=== PATIENT | female | born 1995 | race Hispanic/Latino ===

== ENCOUNTER 2019-10-16 17:52 | Emergency (ER) | payer SELFPAY ==
[2019-10-16 18:34] LABS: Bilirubin Negative (Negative); Blood, Urine Negative (Negative); Clarity Clear (Clear); Glucose, Urine (Dipstick) Normal (Negative); Leukocyte Negative Leu/uL (Negative); Nitrite Negative (Negative); Protein, Urine (Dipstick) Negative (Neg-Trace); Urobilinogen Normal mg/dL (Less than 2)
[2019-10-16 18:54] LABS: #Eosinphils 0.1 thou/uL (0.0-0.7); #Lymphocytes 2.2 thou/uL (1.20-3.40); #Monocytes 0.6 thou/uL (0.11-0.59); #Neutrophils 5.7 thou/uL (1.40-6.50); %Basophils 0.3 % (0.0-1.0); %Eosinophils 1.7 % (0.0-10.0); %Lymphocytes 25.2 % (21.0-51.0); %Monocytes 6.6 % (0.0-10.0); %Neutrophils 66.2 % (42.0-75.0); Hemoglobin 11.1 g/dL (12.0-16.0); Mean Corpuscular HGB CONC 33.2 g/dL (32.0-36.0); Mean Corpuscular Hemoglobin 25.2 pg (27.0-31.0); Mean Platelet Volume 8.5 fL (7.4-10.4); Platelet Count 280 thou/uL (130-400); RBC Distribution Width 16.7 % (11.5-14.5); Red Blood Cell (RBC) Count 4.43 mill/uL (4.20-5.40); White Blood Cell (WBC) Count 8.7 thou/uL (4.8-10.8)
[2019-10-16 19:13] LABS: ALT (SGPT) 10 U/L (8-55); AST (SGOT) 8 U/L (5-34); Albumin 3.9 g/dL (3.5-5.0); Alkaline Phosphatase 52 U/L (40-110); Anion Gap 13 mmol/L (10-20); BUN (Urea Nitrogen) 9 mg/dL (7.0-18.7); Bilirubin, Total 0.4 mg/dL (0.2-1.2); Calc. Creatinine Clearance 0 mL/min (70-130); Calcium 9.1 mg/dL (7.8-10.44); Carbon Dioxide 22 mmol/L (22-29); Chloride 104 mmol/L (98-107); Estimated GFR-MDRD 85; Globulin 3.2 g/dL (2.4-3.5); Glucose 139 mg/dL (70-105); Potassium 3.6 mmol/L (3.5-5.1); Protein, Total 7.1 g/dL (6.0-8.3); Sodium 135 mmol/L (136-145)
--- NOTE | 2019-10-16 21:05 | ULT ---
PELVIC ULTRASOUND: Transabdominal ultrasound of the pelvis performed. Indications: Right lower quadrant and pelvic pain. FINDINGS: There is a viable intrauterine identified. pole is identified. Antimony rump length shannon cates an 11 week 2 day gestational age. Gestational sac appears normal. Gestational sac measurements indicate a 9 week 2 day gestational age. Overall gestational age by ultrasound is 10 weeks 6 days. heart rate recorded at 168 beats/minute. Posterior placenta that is low lying. Area of decreased echogenicity in the fundus adjacent to the placenta is consistent with a small area of subchorionic hemorrhage. Suggest follow up. Both ovaries are identified. Spectral analysis and doppler indicates blood flow to both ovaries. A sm all left ovarian cyst measuring up to 2.0 cm. No free fluid. IMPRESSION: 1. Viable intrauterine with gestational age by ultrasound 10 weeks 6 days. 2. Evidence of a small subchorionic hemorrhage. Suggest follow up. POS: TIM
== END 2019-10-16 22:01 | disposition home or self-care (01) ==
LOC: ERS 17:52
DX: O20.8 Other hemorrhage in early pregnancy (principal); O99.331 Smoking (tobacco) complicating pregnancy, first trimester; F17.210 Nicotine dependence, cigarettes, uncomplicated; Z3A.10 10 weeks gestation of pregnancy
CPT/HCPCS: 36415; 76856; 80053; 81003; 84702; 85025; 86900; 86901; 93976

== ENCOUNTER 2020-02-15 03:57 | Day surgery (SDC) | payer MEDICAID, SELFPAY ==
[2020-02-15 04:39] VITALS: BMI 44.4
[2020-02-15] MEDS ORDERED: hydrALAZINE 20 MG/ML VIAL SLOW IVP PRN (05:00)
[2020-02-15 05:55] LABS: #Eosinphils 0.2 thou/uL (0.0-0.7); #Lymphocytes 2.9 thou/uL (1.20-3.40); #Monocytes 0.8 thou/uL (0.11-0.59); #Neutrophils 10.1 thou/uL (1.40-6.50); %Basophils 0.1 % (0.0-1.0); %Eosinophils 1.3 % (0.0-10.0); %Lymphocytes 20.7 % (21.0-51.0); %Monocytes 5.7 % (0.0-10.0); %Neutrophils 72.2 % (42.0-75.0); Hemoglobin 9.6 g/dL (12.0-16.0); Mean Corpuscular HGB CONC 33.9 g/dL (32.0-36.0); Mean Corpuscular Hemoglobin 25.8 pg (27.0-31.0); Mean Platelet Volume 8.4 fL (7.4-10.4); Platelet Count 242 thou/uL (130-400); RBC Distribution Width 15.4 % (11.5-14.5); Red Blood Cell (RBC) Count 3.72 mill/uL (4.20-5.40)
[2020-02-15 06:12] LABS: ALT (SGPT) 8 U/L (8-55); AST (SGOT) 9 U/L (5-34); Albumin 3.5 g/dL (3.5-5.0); Alkaline Phosphatase 78 U/L (40-110); Anion Gap 12 mmol/L (10-20); BUN (Urea Nitrogen) 12 mg/dL (7.0-18.7); Bilirubin, Total 0.6 mg/dL (0.2-1.2); Calc. Creatinine Clearance 230 mL/min (70-130); Calcium 8.9 mg/dL (7.8-10.44); Carbon Dioxide 21 mmol/L (22-29); Chloride 106 mmol/L (98-107); Estimated GFR-MDRD Greater than 90; Globulin 3.1 g/dL (2.4-3.5); Glucose 115 mg/dL (70-105); Potassium 3.4 mmol/L (3.5-5.1); Protein, Total 6.6 g/dL (6.0-8.3); Sodium 136 mmol/L (136-145)
--- NOTE | 2020-02-15 07:37 | PDOC.LDHP ---
Labor and Delivery H&P Chief complaint: abdominal pain HPI: 24 y/o at 28w6d, patient of Dr. Oconnor, presents with intermittent abdominal pain since James when she woke up on her abdomen. She reports having upper abdominal pain lasting a minute and occurring several times per hour. Denies VB, LOF, or decreased FM. ROS neg for HEENT, CV, pulm, GI, , neuro, psych, skin, musculoskeletal, or constitutional symptoms other than mentioned above. OB History Details: 1 prior LTCS for breech Current complications: none Past Medical History: Obesity Previous surgical history: low tranverse CS Social history: none - Physical Exam Vital signs reviewed and normal: yes Abnormal vital signs: normal to mild range BPs General: NAD Lungs: nonlabored breathing Abdomen: gravid Extremeties: no edema FHT: category 1 (140s, mod variability, + accels, no decels) [place] contractions every: none - Assessment 24 y/o at 28w6d with no e/o PTL or acute process. PIH labs wnl, BPs mostly normal. status reassuring with AGA reactive NST. - Plan -: D/c home with precautions. Advised to keep all appointments.
[2020-02-15 07:43] LABS: Creatinine, Urine 170.15 mg/dL (47-110)
== END 2020-02-15 07:51 | disposition home or self-care (01) ==
LOC: L&D/OP 03:57
PROVIDERS: ATTEND Obstetrics & Gynecology
DX: O99.89 Other specified diseases and conditions complicating pregnancy, childbirth and the puerperium (principal); R10.10 Upper abdominal pain, unspecified; M54.9 Dorsalgia, unspecified; O34.211 Maternal care for low transverse scar from previous cesarean delivery; Z3A.28 28 weeks gestation of pregnancy
CPT/HCPCS: 36415; 80053; 82570; 84156; 85025; 99283

== ENCOUNTER 2020-04-04 12:12 | Day surgery (SDC) | payer OTHER ==
[2020-04-04 13:05] VITALS: BMI 46.8
[2020-04-04 13:11] VITALS: BP 127/77; TEMP 98.4
[2020-04-04 14:28] LABS: #Eosinphils 0.1 thou/uL (0.0-0.7); #Lymphocytes 1.9 thou/uL (1.20-3.40); #Monocytes 0.5 thou/uL (0.11-0.59); #Neutrophils 7.4 thou/uL (1.40-6.50); %Basophils 0.2 % (0.0-1.0); %Monocytes 5.2 % (0.0-10.0); %Neutrophils 74.6 % (42.0-75.0); Hemoglobin 9.2 g/dL (12.0-16.0); Mean Corpuscular HGB CONC 33.1 g/dL (32.0-36.0); Mean Corpuscular Hemoglobin 23.1 pg (27.0-31.0); Mean Corpuscular Volume 69.7 fL (78.0-98.0); Mean Platelet Volume 10.2 fL (7.4-10.4); Platelet Count 275 thou/uL (130-400); RBC Distribution Width 16.7 % (11.5-14.5); Red Blood Cell (RBC) Count 3.97 mill/uL (4.20-5.40); White Blood Cell (WBC) Count 9.9 thou/uL (4.8-10.8)
[2020-04-04 14:44] LABS: Anisocytosis SLIGHT = 6-15 cells (100X) (0-5/hpf); Hypochromia SLIGHT = 6-15 cells (100X) (0-5/hpf); MDiff Complete? YES; Microcytosis SLIGHT = 6-15 cells (100X) (0-5/hpf); Ovalocytes SLIGHT = 2-5 cells (100X) (0-1/hpf); Platelet Morphology Comment Appears Adequate; Polychromasia SLIGHT = 2-3 cells (100X) (0-2/hpf)
[2020-04-04 14:46] LABS: ALT (SGPT) 7 U/L (8-55); AST (SGOT) 12 U/L (5-34); Albumin 3.1 g/dL (3.5-5.0); Alkaline Phosphatase 144 U/L (40-110); Anion Gap 11 mmol/L (10-20); BUN (Urea Nitrogen) 11 mg/dL (7.0-18.7); Bilirubin, Total 0.7 mg/dL (0.2-1.2); Calc. Creatinine Clearance 240 mL/min (70-130); Calcium 8.3 mg/dL (7.8-10.44); Carbon Dioxide 23 mmol/L (22-29); Chloride 108 mmol/L (98-107); Estimated GFR-MDRD Greater than 90; Globulin 2.6 g/dL (2.4-3.5); Glucose 83 mg/dL (70-105); Potassium 3.9 mmol/L (3.5-5.1); Protein, Total 5.7 g/dL (6.0-8.3); Sodium 138 mmol/L (136-145)
[2020-04-04] MEDS ORDERED: Betamet Acet/Betamet Na Ph 30 MG/5 ML VIAL ONE ×2 (15:12)
[2020-04-04 16:03] LABS: Creatinine, Urine 200.8 mg/dL (47-110)
[2020-04-04] MEDS ORDERED: Betamet Acet/Betamet Na Ph 30 MG/5 ML VIAL IM SCH (19:30)
[2020-04-05] MEDS ORDERED: FLU VACC QS2020-21(6MOS UP)/PF 60 MCG/0.5 ML SYRINGE IM ONE (09:00)
== END 2020-04-04 16:00 | disposition home health service (06) ==
LOC: L&D/OP 12:12
PROVIDERS: ATTEND Obstetrics & Gynecology
DX: Z29.8 Encounter for other specified prophylactic measures (principal)
CPT/HCPCS: 36415; 80053; 82570; 84156; 85025; J0702

== ENCOUNTER 2020-04-05 15:20 | Day surgery (SDC) | payer OTHER | END 2020-04-05 15:55 | disposition home or self-care (01) | LOC: L&D/OP 15:20 | PROVIDERS: ATTEND Obstetrics & Gynecology | DX: Z29.8 Encounter for other specified prophylactic measures (principal) | CPT/HCPCS: 96372; 99281 ==

== ENCOUNTER 2020-04-06 22:47 | Inpatient (IN) | payer OTHER ==
[2020-04-06 23:23] VITALS: BMI 46.8
--- NOTE | 2020-04-06 23:29 | PDOC.BPN ---
- Brief Progress Note Encounter Date: 04/06/20 [id number], 04/06/20 case reviewed. HX FBS 115 so presumed GDM, unclassified. [facility] HX CS x 1 in past. See my dictation
[2020-04-06] MEDS ORDERED: hydrALAZINE 20 MG/ML VIAL SLOW IVP PRN ×2 (23:32→23:44)
--- NOTE | 2020-04-06 23:42 | PDOC.BPN ---
- Brief Progress Note Encounter Date: 04/06/20 Encounter Time: 23:40 I have requested Sol, the patient's nurse, to update and notify Dr Oconnor for possible repeat CS due to FHR tachycardia and lack of variability.
[2020-04-06] MEDS ORDERED: Butorphanol Tartrate 1 MG/ML VIAL SLOW IVP PRN (23:44)
[2020-04-06] MEDS ORDERED: Promethazine HCl 25 MG/ML VIAL IM PRN (23:44)
[2020-04-06] MEDS ORDERED: Ondansetron PF 4 MG/2 ML Vial IVP PRN (23:44)
[2020-04-06] MEDS ORDERED: Lactated Ringer's 1,000 ML IV SCH (23:45)
--- NOTE | 2020-04-07 00:04 | HP ---
The time is roughly 2330. CHIEF COMPLAINT: Decreased movement. This is a patient of Dr. Oconnor. Her estimated gestational age is about 36 weeks and 1 day. HISTORY OF PRESENT ILLNESS: This is a 24-year-old, G3, P1, SAB 1, with a history of a previous in the past, who was here in Labor and Delivery over the last couple of days for steroid administration and that was ordered by another physician. Based on her history, she states that she is not on any medications, but upon review of the test notes, including some of the record, it looks like she may have gestational diabetes with a fasting blood sugar that was greater than 105 initially. The record also looks like she was supposed to be on nifedipine for possible gestational hypertension versus other, but patient states she is not on medication. It is important to note that the patient is not a good historian and we do not have the updated record from Dr. Oconnor's office. Again, she arrives for decreased movement, but she denies vaginal bleeding or contractions. Although Dr. Oconnor, per patient report, has suggested a repeat , patient may be considering a TOLAC, but that has not been planned out yet. She denies any fevers or other complications. On blood pressure evaluation, her blood pressure was 146/70, pulse is 71. She is afebrile. Respirations are 18 and nonlabored. NST: Nonstress test shows heart tracing of about 160s with minimal variability, so this is not yet reactive, so I have ordered a biophysical profile. Interventions ordered: I have ordered a CMP, and a CBC. I have ordered a biophysical profile and a cervical exam. I have also ordered a urine protein and creatinine. ASSESSMENT: This is a 24-year-old, G3, P1, SAB 1, with a previous x1 at 36 weeks and 1 day with decreased movement and tachycardia of unclear source. I do not have a clear history of whether she is gestational diabetic or not and I am not sure of her nifedipine story as patient cannot provide thorough details. PLAN: 1. Complete the antepartum surveillance by a complete biophysical profile. 2. If biophysical profile is not reassuring, as she is 36 weeks, and has already had steroids, I will likely admit to Dr. Oconnor, so he can decide plan of care. 3. The patient has received steroids, which may likely give her hyperglycemia, so I am not sure if this is a primary pathological effect or steroid responsive, if she has high glucose. 4. Workup in progress. Job ID: [id number] MTDD
[2020-04-07 00:08] LABS: #Eosinphils 0.2 thou/uL (0.0-0.7); #Monocytes 1.1 thou/uL (0.11-0.59); #Neutrophils 11.2 thou/uL (1.40-6.50); %Basophils 0.2 % (0.0-1.0); %Eosinophils 1.3 % (0.0-10.0); %Lymphocytes 13.8 % (21.0-51.0); %Monocytes 7.5 % (0.0-10.0); %Neutrophils 77.3 % (42.0-75.0); Hemoglobin 8.2 g/dL (12.0-16.0); Mean Corpuscular Hemoglobin 23.3 pg (27.0-31.0); Mean Corpuscular Volume 70.6 fL (78.0-98.0); Mean Platelet Volume 10.2 fL (7.4-10.4); Platelet Count 288 thou/uL (130-400); RBC Distribution Width 16.4 % (11.5-14.5); White Blood Cell (WBC) Count 14.5 thou/uL (4.8-10.8)
[2020-04-07] MEDS ORDERED: Insulin Regular 300 UNITS/3 ML VIAL SC SCH (00:15)
--- NOTE | 2020-04-07 00:15 | PDOC.LDHP ---
Labor and Delivery H&P Chief complaint: decreased movement HPI: 24yo @ 36.1 by LMP complicated by GDM and possible gHTN vs PreE, patient unsure of details and no available [facility] records, presents for decreased movement since 1400 today. States usually baby is very active but has had minimal movement since that time. No LOF, vaginal bleeding, change in vaginal discharge. No dysuria, frequency, hematuria. No fever/chills, recent illness, SOB, cough, congestion. No ctx. States saw PCP in clinic last week and had swelling of hands and feet and concern for elevated BP. Was given steroids for lung maturity on 04/04 and 04/05. BG since steroids has been elevated per patient, ranging 140-180. Current gestational age (weeks): 36 (36.1) Due date: 05/03/20 Dating criteria: last menstrual period Grav: 3 Para: 1 (1011) OB History Details: 1 Spontaneous AB 1 pLTCS for breech presentation Current complications: gestational diabetes, hypertension (gHTN vs cHTN vs preE) Past Medical History: Denies outside of Current medications: pre-jasmin vitamins, other (states was given nifedipine but has not been taking, possibly given insulin but has almost not been taking) Previous surgical history: low tranverse CS Allergies/Adverse Reactions: Allergies Allergy/AdvReac Type Severity Reaction Status Date / Time No Known Allergies Allergy Unverified 04/04/20 13:02 Social history: none - Physical Exam Abnormal vital signs: BP 146/70 General: NAD, resting Heart: RRR Lungs: CTAB Abdomen: gravid Extremeties: other (BL feet and hand non-pitting edema) FHT: category 2 ( tachycardia to 160, minimal variability, no accels, no deccels) [place] contractions every: none - OB Labs Blood type: B RH: positive Antibody Screen: negative HIV: negative RPR: negative HEPSAg: negative 1 hour GCT: positive GBS: unknown Rubella: immune - Plan Plan: admit to L&D -: 24yo @ 36.1 by LMP complicated by GDM and possible gHTN vs PreE, patient unsure of details and no available [facility] records, presents for decreased movement since 1400 today. #Decreased movement in - Non-reactive NST with tachycardia, minimal variability and no accels - No signs of maternal infection, afebrile, no tachycardia, and no sxs - Will order BPP - Admit patient for observation vs delivery, Dr. Oconnor notified - prior LTCS for breech presentation, was still discussing MOD with Dr. Oconnor, likely rLTCS per patient #Elevated BP - Initial BP 140s, unclear history - Will order CMP, CBC, Urine Pr/Cr - Continue to monitor, no sxs of severe features at this time #GDM - Unclear current medical regime - Dr. Oconnor recommends 4u regular insulin for initial BG, given - Will continue to monitor and defer management to PCP PCP: Dr. Oconnor Dispo: Admit for nonreactive NST, BPP and labs pending, Dr. Oconnor notified. Above plan and documentation discussed with Dr. Singh, who agrees with plan.
[2020-04-07 00:16] LABS: ALT (SGPT) 9 U/L (8-55); AST (SGOT) 10 U/L (5-34); Albumin 2.9 g/dL (3.5-5.0); Alkaline Phosphatase 129 U/L (40-110); Anion Gap 13 mmol/L (10-20); BUN (Urea Nitrogen) 12 mg/dL (7.0-18.7); Bilirubin, Total 0.5 mg/dL (0.2-1.2); Calc. Creatinine Clearance 231 mL/min (70-130); Calcium 8.1 mg/dL (7.8-10.44); Carbon Dioxide 21 mmol/L (22-29); Chloride 109 mmol/L (98-107); Estimated GFR-MDRD 88; Globulin 2.9 g/dL (2.4-3.5); Glucose 228 mg/dL (70-105); Potassium 3.9 mmol/L (3.5-5.1); Protein, Total 5.8 g/dL (6.0-8.3); Sodium 139 mmol/L (136-145)
[2020-04-07 00:35] LABS: Syphilis Antibody Nonreactive (Nonreactive); Syphilis Antibody Index 0.02 S/CO (<1.00 Non-Reactive)
[2020-04-07 00:36] LABS: HBSAg Index 0.16 S/CO (0-0.99); HIV (1/2) Antibody/Antigen Non-Reactive (NonReactive); HIV 1/2 INDEX 0.12 S/CO (<1.00); Hep B Surf Ag Non-Reactive S/CO (NonReactive)
[2020-04-07] MEDS ORDERED: CEFAZOLIN 2 GM in Premix Bag 1 BAG IVPB SCH (01:00)
[2020-04-07] MEDS ORDERED: Bicitra 30 ML UDCUP PO SCH (01:00)
[2020-04-07] MEDS ORDERED: Ondansetron PF 4 MG/2 ML Vial ONE (01:22)
[2020-04-07] MEDS ORDERED: Ketorolac Tromethamine 30 MG/ML VIAL ONE (01:22)
[2020-04-07] MEDS ORDERED: Morphine PF 10 MG/10 ML VIAL ONE (01:22)
[2020-04-07] MEDS ORDERED: Dexamethasone 4 mg/ml Vial ONE (01:22)
[2020-04-07] MEDS ORDERED: PHENYLEPHRINE-NS 100 MCG/ML 10 ML SYRINGE ONE (01:22)
[2020-04-07] MEDS ORDERED: Oxytocin 10 UNITS/ML VIAL ONE (01:22)
[2020-04-07 01:37] LABS: Creatinine, Urine 46.74 mg/dL (47-110)
[2020-04-07] MEDS ORDERED: ePHEDrine 50 MG/ML VIAL ONE (01:43)
[2020-04-07] MEDS ORDERED: Ondansetron PF 4 MG/2 ML Vial IVP PRN ×2 (02:22→04:51)
[2020-04-07] MEDS ORDERED: L&D-Morphine 4 MG/ML VIAL SLOW IVP PRN (02:22)
[2020-04-07] MEDS ORDERED: Naloxone HCl 0.4 mg/ml Vial IV PRN (02:22)
[2020-04-07] MEDS ORDERED: Meperidine HCl/PF 25 MG/ML VIAL SLOW IVP PRN (02:22)
[2020-04-07] MEDS ORDERED: Promethazine HCl 25 MG SUPP PR PRN (02:22)
[2020-04-07] MEDS ORDERED: Promethazine HCl 25 MG/ML VIAL IM PRN ×2 (02:22→04:51)
[2020-04-07] MEDS ORDERED: HYDROmorphone 2 MG/ML VIAL SLOW IVP PRN (02:22)
[2020-04-07] MEDS ORDERED: Naloxone HCl 0.4 mg/ml Vial IVP PRN ×2 (02:22)
[2020-04-07] MEDS ORDERED: diphenhydrAMINE 50 MG/ML VIAL IVP PRN (02:22)
[2020-04-07] MEDS ORDERED: Ondansetron HCl/PF 4 MG/2 ML Vial IVP PRN (02:22)
[2020-04-07] MEDS ORDERED: Communication Order-Pharmacy FS SCH (02:30)
[2020-04-07 03:22] LABS: SARS-CoV-2 NAA Rapid Test Not Detected (NotDetected)
[2020-04-07] MEDS ORDERED: Lanolin Ointment 7 GM TUBE TOP PRN (04:51)
[2020-04-07] MEDS ORDERED: Misoprostol 200 MCG TAB PR PRN (04:51)
[2020-04-07] MEDS ORDERED: Simethicone Chewable 80 MG TAB PO PRN (04:51)
[2020-04-07] MEDS ORDERED: Zolpidem Tartrate 5 MG TAB PO PRN (04:51)
[2020-04-07] MEDS ORDERED: NS / Oxytocin 40 units/1000ml 1,000 ML IV SCH (04:51)
[2020-04-07] MEDS ORDERED: hydrALAZINE 20 MG/ML VIAL SLOW IVP PRN (04:51)
[2020-04-07] MEDS ORDERED: diphenhydrAMINE 25 MG CAP PO PRN (04:51)
[2020-04-07] MEDS ORDERED: Bisacodyl 10 MG SUPP PR PRN (04:51)
[2020-04-07] MEDS ORDERED: Ketorolac Tromethamine 30 MG/ML VIAL IVP SCH (08:30)
--- NOTE | 2020-04-07 08:41 | ULT ---
PRELIMINARY REPORT/[facility]/EMERGENCY AFTER HOURS PROCEDURE: This report was discussed with Fernando Parsons MD by Chaan us on Apr 07, 2020 01:17:00 CDT. Add endum electronically signed by Chana us on April 07, 2020 1:18:00 AM CDT EXAM: US Obstetrical, Complete > 14 weeks CLINICAL HISTORY: HX: DECREASED MOVEMENT. GDM, NONREACTIVE NST. SEE NOTES ON LAST IMAGE. BPP=2/ 8. NURSE INFORMED OF SCORE. TECHNIQUE: Transabdominal imaging of the maternal pelvis and a > 14 week gestation with image documen tation. COMPARISON: FINDINGS: FETUS: There is a single living intrauterine gestation. POSITION: position is vertex HEART RATE: The heart rate is 170 bpm BIOMETRICS: Based on composite biometry, the composite estimated gestational age by ultrasound is 36 weeks 3 days. EFW: 4082 g ?604 g ANATOMIC SURVEY: The visualized anatomy is unremarkable. PLACENTA: The placenta is fundal. No demonstrated evidence of previa or abruption. AMNIOTIC FLUID: Within normal limits. 15.9 cm. Deepest pocket: 7.6 cm BPP: 2/8: Absent tone, breathing, movements . Umbilical artery: SD: 2.54 RI: 0.61 PI: 0.96 CERVIX: Closed. Unremarkable as visualized. IMPRESSION: 1. Single living intrauterine gestation estimated at 36 weeks 3 days by today's ultrasound criteria. 2. Abnormal BPP 2/8 with absent tone, breathing and movement ELECTRONICALLY SIGNED BY: Bee Abbott MD Apr 07, 2020 1:10:17 AM CDT FINAL REPORT NONSTRESS BIOPHYSICAL PROFILE: HISTORY: Decreased movement. TECHNIQUE: Nonstress biophysical profile was performed. FINDINGS: Fetus: Roque intrauterine gestation. Presentation: Vertex. heart tones: 170 beats. Amniotic fluid index: 15.9 cm. Nonstress biophysical profile: tone 0. breathing 0. movements 0. Amniotic fluid 2. Total score 2 out of 8. IMPRESSION: 1. This report is in agreement with initial report by [facility]. 2. Nonstress biophysical profile 2 out of 8. Transcribed Date/Time: 04/07/2020 9:19 AM
[2020-04-07] MEDS ORDERED: Measles/Mumps/Rubella 10 MCG/0.5 ML VIAL SC ONE (09:00)
[2020-04-07] MEDS ORDERED: Varicella virus, LIVE 0.5 ML VIAL SC ONE (09:00)
[2020-04-07] MEDS ORDERED: Adacel (T-DAP) 0.5 ML SYRINGE IM ONE (09:00)
[2020-04-07] MEDS: metFORMIN 500 MG TAB PO SCH ×2 (09:00→20:58)
[2020-04-07] MEDS: Docusate Calcium (SURFAK) 240 MG CAP PO SCH ×2 (09:09→22:09)
[2020-04-07] MEDS: Prenatal Vitamin 1 TAB PO SCH (09:10)
[2020-04-07] MEDS ORDERED: Enoxaparin Sodium 40 MG/0.4 ML SYRINGE SC SCH (10:00)
[2020-04-07 13:56] LABS: Hemoglobin 7.6 g/dL (12.0-16.0); Mean Corpuscular HGB CONC 33.1 g/dL (32.0-36.0); Mean Corpuscular Hemoglobin 23.5 pg (27.0-31.0); Mean Platelet Volume 9.6 fL (7.4-10.4); Platelet Count 235 thou/uL (130-400); RBC Distribution Width 16.2 % (11.5-14.5); Red Blood Cell (RBC) Count 3.22 mill/uL (4.20-5.40); White Blood Cell (WBC) Count 20.1 thou/uL (4.8-10.8)
[2020-04-07] MEDS ORDERED: Ibuprofen 800 MG TAB PO SCH (14:30)
[2020-04-07] MEDS: Ibuprofen 800 MG TAB PO SCH (22:09)
[2020-04-08] MEDS: Ibuprofen 800 MG TAB PO SCH ×3 (05:35→21:38)
[2020-04-08] MEDS: HYDROcodone/Acetaminophen 5/325 mg Tablet PO PRN ×2 (05:39→09:55)
[2020-04-08] MEDS ORDERED: Ibuprofen 800 MG TAB PO SCH (06:00)
[2020-04-08 06:36] LABS: Hemoglobin 7.9 g/dL (12.0-16.0); Mean Corpuscular HGB CONC 32.7 g/dL (32.0-36.0); Mean Corpuscular Hemoglobin 23.2 pg (27.0-31.0); Mean Corpuscular Volume 71.1 fL (78.0-98.0); Mean Platelet Volume 10.5 fL (7.4-10.4); Platelet Count 266 thou/uL (130-400); RBC Distribution Width 16.6 % (11.5-14.5); White Blood Cell (WBC) Count 12.8 thou/uL (4.8-10.8)
[2020-04-08] MEDS: Prenatal Vitamin 1 TAB PO SCH (09:14)
[2020-04-08] MEDS: Docusate Calcium (SURFAK) 240 MG CAP PO SCH ×2 (09:15→21:38)
[2020-04-08] MEDS: metFORMIN 500 MG TAB PO SCH ×2 (09:15→18:35)
[2020-04-09] MEDS: Ibuprofen 800 MG TAB PO SCH ×3 (05:11→20:54)
[2020-04-09] MEDS: Docusate Calcium (SURFAK) 240 MG CAP PO SCH ×3 (10:33→20:54)
[2020-04-09] MEDS: metFORMIN 500 MG TAB PO SCH ×3 (10:33→19:34)
[2020-04-09] MEDS: Prenatal Vitamin 1 TAB PO SCH ×2 (10:33→11:41)
[2020-04-09] MEDS: HYDROcodone/Acetaminophen 5/325 mg Tablet PO PRN ×3 (11:42→23:46)
[2020-04-10] MEDS: HYDROcodone/Acetaminophen 5/325 mg Tablet PO PRN (05:58)
[2020-04-10] MEDS: Ibuprofen 800 MG TAB PO SCH ×3 (05:58→22:13)
[2020-04-10] MEDS: metFORMIN 500 MG TAB PO SCH ×2 (09:35→18:25)
[2020-04-10] MEDS: Prenatal Vitamin 1 TAB PO SCH (09:35)
[2020-04-10] MEDS: Docusate Calcium (SURFAK) 240 MG CAP PO SCH ×2 (09:35→22:13)
--- NOTE | 2020-04-10 17:32 | PDOC.PP ---
Post Progress Note Post Day #: 2 PO intake tolerated: yes Flatus: yes Ambulation: yes Vital Signs (12 hours) Temp Pulse Resp BP BP Pulse Ox 04/10/20 14:40 85 20 142/71 H 04/10/20 08:17 98.2 F 65 20 140/65 97 Weight Weight 299 lb - Physical Examination General: NAD Cardiovascular: no m/r/g, RRR Respiratory: clear to auscultation bilaterally, non-labored breathing Abdominal: + bowel sounds, lochia, no distention, appropriately TTP Extremities: negative homans (B) Skin: CS incision dry & intact, no rash Neurological: no gross focal deficits Psychiatric: A&Ox3, normal affect (Pt seen in NICU while feeding her baby. No new major issues at this time. DC planned tomorrow.) Result Diagrams: 04/08/20 06:13 04/06/20 23:45 Additional Labs: Post Labs Hep Bs Antigen Non-Reactive S/CO (NonReactive) 04/06/20 23:46 Blood Type B POSITIVE 04/06/20 23:45
[2020-04-11] MEDS: Ibuprofen 800 MG TAB PO SCH (05:18)
[2020-04-11 08:03] VITALS: BP 131/63; TEMP 98.6
[2020-04-11] MEDS: Docusate Calcium (SURFAK) 240 MG CAP PO SCH (11:15)
[2020-04-11] MEDS: metFORMIN 500 MG TAB PO SCH (11:15)
[2020-04-11] MEDS: Prenatal Vitamin 1 TAB PO SCH (11:16)
--- NOTE | 2020-04-12 14:37 | DIS ---
DATE OF ADMISSION: 04/06/2020 DATE OF DISCHARGE: 04/11/2020 TIME OF ADMISSION: At 2344 hours. TIME OF DISCHARGE: At 1130 hours. ADMISSION DIAGNOSIS: Non-reassuring heart tones at 36 weeks. PROCEDURES PERFORMED: Repeat low transverse section on 04/07/2020. HOSPITAL COMPLICATIONS: None. HOSPITAL CONSULTATIONS: None. HOSPITAL COURSE: Ms. Melendez presented to Labor and Delivery, was found to have non-reassuring heart tones and repeat section was performed on 04/07/2020. She was discharged to home in stable condition on postoperative day 4. Baby was in the NICU after heart tones showed decreased variability and extended tachycardia predelivery. The patient was discharged home with prescriptions for Tylenol 3 and for ibuprofen 800 mg. clinic followup was recommended in two weeks. Infection and bleeding precautions were reviewed. Job ID: [id number]
--- NOTE | 2020-04-12 14:37 | OP ---
DATE OF PROCEDURE: 04/07/2020 TIME OF SERVICE: 0149 hours [place] Daylight Savings Time. PREOPERATIVE DIAGNOSES: Intrauterine at 36 weeks and 2 days with decreased movement and non-reassuring heart tones as well as noncompliant diabetic control, and the patient is stopping her metformin over the last several days. POSTOPERATIVE DIAGNOSES: Intrauterine at 36 weeks and 2 days with decreased movement and non-reassuring heart tones as well as noncompliant diabetic control, and the patient is stopping her metformin over the last several days. PROCEDURE PERFORMED: Repeat low-transverse section. FINDINGS: Viable male weighing 3616 g or 8 pounds 0 ounces, Apgars of 8 and 9. QUANTITATIVE BLOOD LOSS: 625 mL. COMPLICATIONS: None. DESCRIPTION OF PROCEDURE: The patient was consented and taken back to the operating room where spinal anesthesia was found to be adequate. She was then prepped and draped in the normal sterile fashion. A timeout was performed by the entire operative team. The incision was then marked with a marking pen tested using sharp pickups. An incision was then made with a scalpel. The incision was carried through the adipose tissue down to the underlying rectus fascia using both sharp dissection as well as cautery. Once the fascia was identified, it was incised in the midline and then the fascial incision was carried through in both lateral directions using sharp as well as cautery dissection techniques. Next, the superior aspect of the rectus fascia was grasped with 2 Farzad clamps, which was tented up and the rectus muscles were dissected off using blunt dissection as well as cautery dissection. Similarly, the inferior aspect of the fascial incision was grasped with 2 Farzad clamps, tented up and the rectus muscles were dissected off bluntly as well as sharply. Next, the rectus muscles were in the midline and the peritoneum identified. The peritoneum was then carefully grasped with 2 hemostats and entered sharply. The peritoneal incision was extended superiorly and inferiorly and bladder blade was placed in the lower abdomen. At this point, the uterus was identified and the bladder flap was then developed using pickups with teeth as well as Metzenbaum scissors in both lateral directions. The bladder flap was then dissected downwards using the wood drill operator's finger as well as Metzenbaum scissors. The bladder blade was replaced. The lower uterine segment was then identified and entered sharply using a clean scalpel. The uterine incision was then dissected downwards until thin layer of muscle remained and this was entered bluntly using a hemostat to avoid any injury to the baby. The uterine incision was then stretched using two fingers in both lateral directions. An amniotomy was performed artificially using a hemostat and the baby was delivered using fundal pressure in a gentle fashion. Once out, the baby's mouth and nose were bulb suctioned, cord clamped and cut, and the baby was handed to waiting attendants. Next, the uterus was exteriorized, cleared of all clots and debris and the uterine incision was repaired with #1 Monocryl in a running locking fashion. A 2nd suture of the same type was used to obtain complete hemostasis at the uterine incision. The bladder flap was reapproximated using 3-0 Monocryl. Next, patient's left and right adnexa were inspected and appeared to be within normal limits. The posterior cul-de-sac was blotted dry and hemostasis assured. One more look at the uterine incision demonstrated hemostasis. Next, the uterus was replaced back within the abdomen. The peritoneum was reapproximated using 2-0 Monocryl without difficulty. The rectus muscles were then allowed to come back together and 0 chromic was used to aid in reapproximation of the muscle as necessary. The rectus fascia was then reapproximated in a running fashion using 0 Vicryl suture. The adipose tissue was then examined and appeared to be well approximated without any obvious separations. Finally, the skin was reapproximated with 3-0 Monocryl on a Silvio needle without difficulty and Dermabond adhesive was applied to the skin. Once the glue was dry, the drapes were removed and the patient was transferred to an ambulatory bed where she was taken to recovery awake and in stable condition. Sponge, lap, and needle counts were correct x3. Job ID: [id number]
== END 2020-04-11 11:30 | disposition home or self-care (01) | DRG 788 ==
LOC: L&D/OP 22:47 → L&D 23:44 → 3SW 04-07 05:49
PROVIDERS: ADMIT Obstetrics & Gynecology; ATTEND Obstetrics & Gynecology
PROC: 10D00Z1 Extraction of Products of Conception, Low, Open Approach (ICD-10-PCS; principal; 2020-04-07)
DX: O36.8190 Decreased fetal movements, unspecified trimester, not applicable or unspecified (principal); O24.429 Gestational diabetes mellitus in childbirth, unspecified control; O76 Abnormality in fetal heart rate and rhythm complicating labor and delivery; O34.211 Maternal care for low transverse scar from previous cesarean delivery; O16.4 Unspecified maternal hypertension, complicating childbirth; Z20.828 Contact with and (suspected) exposure to other viral communicable diseases; Z3A.36 36 weeks gestation of pregnancy; Z37.0 Single live birth
CPT/HCPCS: 36415; 36416; 51702; 76819; 80053; 82570; 84156; 85025; 85027; 86780; 86850; 86900; 86901; 87340; 87389; 99285; J0690; J1100; J1650; J1815; J1885; J2270; J2405; J3490; U0002

== ENCOUNTER 2021-10-30 23:16 | Emergency (ER) | payer OTHER ==
[2021-10-30] MEDS ORDERED: Ketorolac Tromethamine 30 MG/ML VIAL ONE (23:35)
[2021-10-30] MEDS ORDERED: Ondansetron PF 4 MG/2 ML Vial ONE (23:35)
[2021-10-30 23:53] LABS: #Lymphocytes 0.8 thou/uL (1.20-3.40); #Monocytes 0.4 thou/uL (0.11-0.59); #Neutrophils 6.8 thou/uL (1.40-6.50); %Eosinophils 0.4 % (0.0-10.0); %Lymphocytes 10.4 % (21.0-51.0); %Monocytes 4.9 % (0.0-10.0); %Neutrophils 84.2 % (42.0-75.0); Hemoglobin 12.1 g/dL (12.0-16.0); Mean Corpuscular HGB CONC 33.1 g/dL (32.0-36.0); Mean Corpuscular Hemoglobin 25.1 pg (27.0-31.0); Mean Platelet Volume 8.3 fL (7.4-10.4); Platelet Count 274 thou/uL (130-400); RBC Distribution Width 14.9 % (11.5-14.5); Red Blood Cell (RBC) Count 4.82 mill/uL (4.20-5.40)
[2021-10-31 00:10] LABS: Bilirubin Negative (Negative); Blood, Urine Negative (Negative); Clarity Clear (Clear); Glucose, Urine (Dipstick) Negative (Negative); Ketone, Urine Negative (Negative); Leukocyte Negative (Negative); Nitrite Negative (Negative); Protein, Urine (Dipstick) 100 mg/dL (Neg-Trace); Urobilinogen 0.2 mg/dL (Less than 2)
[2021-10-31 00:11] LABS: ALT (SGPT) 24 U/L (8-55); AST (SGOT) 20 U/L (5-34); Albumin 4.5 g/dL (3.5-5.0); Alkaline Phosphatase 77 U/L (40-110); Anion Gap 14 mmol/L (10-20); BUN (Urea Nitrogen) 10 mg/dL (7.0-18.7); Bilirubin, Total 1.4 mg/dL (0.2-1.2); Calc. Creatinine Clearance 0 mL/min (70-130); Calcium 9.1 mg/dL (7.8-10.44); Carbon Dioxide 21 mmol/L (22-29); Chloride 105 mmol/L (98-107); Globulin 3.9 g/dL (2.4-3.5); Glucose 183 mg/dL (70-105); Potassium 3.2 mmol/L (3.5-5.1); Protein, Total 8.4 g/dL (6.0-8.3); Sodium 137 mmol/L (136-145)
[2021-10-31 00:12] LABS: Pregnancy Test - Urine (BHCG) Negative (Negative); Pregu Control Background? CLEAR/WHITE (CLR/WHITE); Pregu Control Bar Appear? YES (CONTROL BAR); Specific Gravity 1.029 (1.002-1.036); Specific Gravity, Urine 1.029 (1.002-1.036)
[2021-10-31 00:14] LABS: RBC/HPF None Seen HPF (0-3); Squamous Epithelial None Seen HPF (0-3); WBC/HPF None Seen HPF (0-3)
== END 2021-10-31 02:36 | disposition home or self-care (01) ==
LOC: ERS 23:16
DX: R10.9 Unspecified abdominal pain (principal); R19.7 Diarrhea, unspecified; R11.0 Nausea; F17.210 Nicotine dependence, cigarettes, uncomplicated
CPT/HCPCS: 74176; 80053; 81003; 81015; 81025; 85025; 87086; 93005; 96374; 96375; J1885; J2405

== ENCOUNTER 2023-03-29 18:29 | Inpatient (IN) | payer BC, OTHER, SELFPAY ==
[2023-03-29] MEDS ORDERED: Ondansetron ODT 4 MG TAB PO PRN (19:11)
[2023-03-29] MEDS ORDERED: Acetaminophen 325 MG TAB PO PRN (19:11)
[2023-03-29] MEDS ORDERED: Ondansetron PF 4 MG/2 ML Vial IVP PRN (19:11)
[2023-03-29 19:48] VITALS: BMI 43.2
[2023-03-29 19:57] LABS: #Eosinphils 0.3 thou/uL (0.0-0.7); #Monocytes 0.3 thou/uL (0.11-0.59); %Basophils 0.1 % (0.0-1.0); %Eosinophils 4.2 % (0.0-10.0); %Neutrophils 64.2 % (42.0-75.0); Hematocrit 15.8 % (36.0-47.0); Mean Corpuscular HGB CONC 25.3 g/dL (32.0-36.0); Mean Corpuscular Hemoglobin 17.8 pg (27.0-31.0); Mean Corpuscular Volume 70.2 fl (78.0-98.0); Mean Platelet Volume 9.6 fL (7.4-10.4); Platelet Count 346 10x3/uL (130-400); RBC Distribution Width 20.8 % (11.5-14.5); Red Blood Cell (RBC) Count 2.25 mill/uL (4.20-5.40); White Blood Cell (WBC) Count 7.7 10x3/uL (4.8-10.8)
[2023-03-29 20:23] LABS: ALT (SGPT) 22 U/L (8-55); AST (SGOT) 14 U/L (5-34); Alkaline Phosphatase 52 U/L (40-110); Anion Gap 13 mmol/L (10-20); BUN (Urea Nitrogen) 9 mg/dL (7.0-18.7); Bilirubin, Total 0.8 mg/dL (0.2-1.2); Calc. Creatinine Clearance 181 mL/min (70-130); Calcium 8.6 mg/dL (7.8-10.44); Carbon Dioxide 23 mmol/L (22-29); Chloride 107 mmol/L (98-107); Estimated GFR 91; Globulin 2.3 g/dL (2.4-3.5); Glucose 130 mg/dL (70-105); Potassium 3.7 mmol/L (3.5-5.1); Protein, Total 6.3 g/dL (6.0-8.3); Sodium 139 mmol/L (136-145)
[2023-03-29 20:27] LABS: Anisocytosis MODERATE=16-30 cells HPF (0-5); CellaVision Operator ID LAB.KB; Hypochromia SLIGHT = 6-15 cells HPF (0-5); Microcytosis SLIGHT = 6-15 cells HPF (0-5); Ovalocytes SLIGHT = 2-5 cells HPF (0-1); Platelet Adequacy Comment Platelets Normal; Poikilocytosis SLIGHT = 6-15 cells HPF (0-5); Polychromasia SLIGHT = 2-3 cells HPF (0-2); Tear Drops SLIGHT = 2-5 cells HPF (0-1)
[2023-03-30 02:07] LABS: #Eosinphils 0.4 thou/uL (0.0-0.7); #Monocytes 0.4 thou/uL (0.11-0.59); %Basophils 0.2 % (0.0-1.0); %Eosinophils 4.2 % (0.0-10.0); %Lymphocytes 22.3 % (21.0-51.0); %Monocytes 4.4 % (0.0-10.0); %Neutrophils 68.2 % (42.0-75.0); Hematocrit 19.5 % (36.0-47.0); Hemoglobin 5.3 g/dL (12.0-16.0); Mean Corpuscular HGB CONC 27.2 g/dL (32.0-36.0); Mean Corpuscular Hemoglobin 20.1 pg (27.0-31.0); Mean Platelet Volume 9.8 fL (7.4-10.4); Platelet Count 329 10x3/uL (130-400); RBC Distribution Width 22.9 % (11.5-14.5); Red Blood Cell (RBC) Count 2.64 mill/uL (4.20-5.40); White Blood Cell (WBC) Count 8.9 10x3/uL (4.8-10.8)
[2023-03-30 02:10] LABS: Mean Corpuscular Volume 73.9 fl (78.0-98.0)
[2023-03-30 02:50] LABS: Anion Gap 13 mmol/L (10-20); BUN (Urea Nitrogen) 10 mg/dL (7.0-18.7); Calc. Creatinine Clearance 197 mL/min (70-130); Calcium 8.4 mg/dL (7.8-10.44); Carbon Dioxide 24 mmol/L (22-29); Chloride 108 mmol/L (98-107); Estimated GFR 101; Glucose 193 mg/dL (70-105); Iron 80 ug/dL (50-170); Iron Binding Capacity, Total 333 mcg/dL (265-497); Potassium 3.5 mmol/L (3.5-5.1); Sodium 141 mmol/L (136-145)
[2023-03-30 06:34] LABS: Hematocrit 24.8 % (36.0-47.0); Hemoglobin 7.1 g/dL (12.0-16.0)
[2023-03-30] MEDS: Folic Acid 1 MG TAB PO SCH (09:26)
[2023-03-30] MEDS: Cyanocobalamin (Vitamin B-12) 1,000 MCG TAB PO SCH (09:26)
[2023-03-30] MEDS ORDERED: Iron Sucrose Complex 200 MG in Sodium Chloride 0.9% 100 ML IVPB SCH (17:30)
[2023-03-30] MEDS ORDERED: Iron, Sodium Ferric Gluconate 250 MG in Sodium Chloride 0.9% 250 ML 250 ML IVPB SCH (20:00)
[2023-03-30] MEDS ORDERED: Prenatal Vitamin 1 TAB PO SCH (21:00)
[2023-03-30] MEDS ORDERED: Potassium Chloride 20 MEQ TAB PO SCH (21:00)
[2023-03-31 04:51] LABS: Hemoglobin 6.8 g/dL (12.0-16.0); Platelet Count 331 10x3/uL (130-400)
[2023-03-31] MEDS: Cyanocobalamin (Vitamin B-12) 1,000 MCG TAB PO SCH (07:54)
[2023-03-31] MEDS: Folic Acid 1 MG TAB PO SCH (07:54)
[2023-03-31] MEDS ORDERED: Iron, Sodium Ferric Gluconate 250 MG in Sodium Chloride 0.9% 250 ML 250 ML IVPB SCH ×2 (10:00→14:00)
[2023-03-31 11:53] VITALS: BP 118/58; TEMP 97.8
[2023-03-31 11:58] LABS: Hematocrit 28.2 % (36.0-47.0); Hemoglobin 8.4 g/dL (12.0-16.0); Platelet Count 384 10x3/uL (130-400)
[2023-03-31] MEDS ORDERED: Iron Sucrose Complex 200 MG in Sodium Chloride 0.9% 100 ML IVPB SCH (14:00)
== END 2023-03-31 13:25 | disposition home or self-care (01) | DRG 760 ==
LOC: 2SW 18:53 → INTOOBSV 18:53 → OBSVTOIN 03-30 17:22
PROVIDERS: ADMIT Family Medicine; ATTEND Internal Medicine
PROC: 30233N1 Transfusion of Nonautologous Red Blood Cells into Peripheral Vein, Percutaneous Approach (ICD-10-PCS; principal; 2023-03-29)
DX: N92.0 Excessive and frequent menstruation with regular cycle (principal); Z68.41 Body mass index [BMI] 40.0-44.9, adult; D50.9 Iron deficiency anemia, unspecified; E66.01 Morbid (severe) obesity due to excess calories; R53.1 Weakness; E87.6 Hypokalemia; K80.20 Calculus of gallbladder without cholecystitis without obstruction; Z98.890 Other specified postprocedural states
CPT/HCPCS: 36415; 36430; 80048; 80053; 82728; 83540; 83550; 84443; 85014; 85018; 85025; 85046; 85049; 86850; 86900; 86901; G0378; G0379; J2916; J7050; P9016

== ENCOUNTER 2023-04-08 17:20 | Emergency (ER) | payer OTHER | END 2023-04-08 19:42 | disposition home or self-care (01) | LOC: ERS 17:20 | DX: I80.8 Phlebitis and thrombophlebitis of other sites (principal) ==

== ENCOUNTER 2023-05-02 12:31 | Inpatient (IN) | payer OTHER ==
[2023-05-02] MEDS ORDERED: HYDROcodone/Acetaminophen 5/325 mg Tablet ONE (13:30)
[2023-05-02 13:40] LABS: #Eosinphils 0.4 thou/uL (0.0-0.7); #Monocytes 0.6 thou/uL (0.11-0.59); #Neutrophils 5.4 thou/uL (1.40-6.50); %Basophils 0.4 % (0.0-1.0); %Eosinophils 4.3 % (0.0-10.0); %Lymphocytes 23.1 % (21.0-51.0); %Monocytes 6.7 % (0.0-10.0); %Neutrophils 65.3 % (42.0-75.0); Hematocrit 27.4 % (36.0-47.0); Hemoglobin 8.6 g/dL (12.0-16.0); Mean Corpuscular HGB CONC 31.4 g/dL (32.0-36.0); Mean Corpuscular Hemoglobin 26.2 pg (27.0-31.0); Mean Corpuscular Volume 83.5 fl (78.0-98.0); Mean Platelet Volume 9.5 fL (7.4-10.4); Platelet Count 317 10x3/uL (130-400); RBC Distribution Width 17.1 % (11.5-14.5); Red Blood Cell (RBC) Count 3.28 mill/uL (4.20-5.40); White Blood Cell (WBC) Count 8.2 10x3/uL (4.8-10.8)
[2023-05-02 14:04] LABS: ALT (SGPT) 23 U/L (8-55); AST (SGOT) 17 U/L (5-34); Alkaline Phosphatase 54 U/L (40-110); Anion Gap 14 mmol/L (10-20); BUN (Urea Nitrogen) 10 mg/dL (7.0-18.7); Bilirubin, Total 1.2 mg/dL (0.2-1.2); Calc. Creatinine Clearance 0 mL/min (70-130); Calcium 8.8 mg/dL (7.8-10.44); Carbon Dioxide 24 mmol/L (22-29); Chloride 104 mmol/L (98-107); Estimated GFR 89; Globulin 2.8 g/dL (2.4-3.5); Glucose 122 mg/dL (70-105); Potassium 3.8 mmol/L (3.5-5.1); Protein, Total 6.8 g/dL (6.0-8.3); Sodium 138 mmol/L (136-145)
[2023-05-02] MEDS ORDERED: Ondansetron ODT 4 MG TAB PO PRN (15:11)
[2023-05-02 16:23] VITALS: BMI 40.6
[2023-05-02] MEDS ORDERED: GoLYTELY 4,000 ml Bottle PO SCH (19:00)
[2023-05-02] MEDS: Famotidine 20 MG TAB PO SCH (20:54)
[2023-05-03] MEDS: Famotidine 20 MG TAB PO SCH ×2 (07:46→20:27)
[2023-05-03 09:49] LABS: BHCG - Serum Negative (NEGATIVE); Pregs Control Background? CLEAR/WHITE (CLR/WHITE); Pregs Control Bar Appear? YES (CONTROL BAR)
[2023-05-03] MEDS ORDERED: PROPOFOL 200 MG/20 ML VIAL ONE (10:31)
[2023-05-03] MEDS ORDERED: Lidocaine 1% PF 5 ML VIAL ONE (10:31)
[2023-05-03] MEDS ORDERED: Promethazine HCl 25 MG/ML VIAL IM PRN (10:38)
[2023-05-03] MEDS ORDERED: HYDROmorphone 2 MG/ML VIAL SLOW IVP PRN (10:38)
[2023-05-03] MEDS ORDERED: Meperidine HCl/PF 25 MG/ML VIAL SLOW IVP PRN (10:38)
[2023-05-03] MEDS ORDERED: Ondansetron HCl/PF 4 MG/2 ML Vial IVP PRN (10:38)
[2023-05-03] MEDS ORDERED: Morphine Sulfate 2 MG/ML SYRINGE SLOW IVP PRN (10:38)
[2023-05-03] MEDS ORDERED: fentaNYL 50 mcg/mL 1 mL Vial ONE (11:03)
[2023-05-03 15:14] LABS: #Eosinphils 0.3 thou/uL (0.0-0.7); #Monocytes 0.3 thou/uL (0.11-0.59); #Neutrophils 4.2 thou/uL (1.40-6.50); %Basophils 0.6 % (0.0-1.0); %Eosinophils 5.3 % (0.0-10.0); %Lymphocytes 25.3 % (21.0-51.0); %Monocytes 4.3 % (0.0-10.0); %Neutrophils 64.3 % (42.0-75.0); Hematocrit 27.9 % (36.0-47.0); Hemoglobin 8.6 g/dL (12.0-16.0); Mean Corpuscular HGB CONC 30.8 g/dL (32.0-36.0); Mean Corpuscular Hemoglobin 25.8 pg (27.0-31.0); Mean Corpuscular Volume 83.8 fl (78.0-98.0); Mean Platelet Volume 9.7 fL (7.4-10.4); Platelet Count 280 10x3/uL (130-400); RBC Distribution Width 16.7 % (11.5-14.5); Red Blood Cell (RBC) Count 3.33 mill/uL (4.20-5.40); White Blood Cell (WBC) Count 6.5 10x3/uL (4.8-10.8)
[2023-05-03] MEDS: Prenatal Vitamin 1 TAB PO SCH (20:27)
[2023-05-04 05:36] LABS: #Eosinphils 0.3 thou/uL (0.0-0.7); #Monocytes 0.4 thou/uL (0.11-0.59); #Neutrophils 4.1 thou/uL (1.40-6.50); %Basophils 0.3 % (0.0-1.0); %Eosinophils 4.5 % (0.0-10.0); %Lymphocytes 24.9 % (21.0-51.0); %Monocytes 6.8 % (0.0-10.0); %Neutrophils 63.2 % (42.0-75.0); Hematocrit 27.6 % (36.0-47.0); Hemoglobin 8.4 g/dL (12.0-16.0); Mean Corpuscular HGB CONC 30.4 g/dL (32.0-36.0); Mean Corpuscular Hemoglobin 25.2 pg (27.0-31.0); Mean Corpuscular Volume 82.9 fl (78.0-98.0); Mean Platelet Volume 9.8 fL (7.4-10.4); Platelet Count 281 10x3/uL (130-400); RBC Distribution Width 16.3 % (11.5-14.5); Red Blood Cell (RBC) Count 3.33 mill/uL (4.20-5.40); White Blood Cell (WBC) Count 6.4 10x3/uL (4.8-10.8)
[2023-05-04] MEDS: Famotidine 20 MG TAB PO SCH ×2 (08:45→20:03)
[2023-05-04] MEDS: Ferrous Sulfate 325 MG TAB PO SCH (08:45)
[2023-05-04] MEDS: Acetaminophen 325 MG TAB PO PRN (08:45)
[2023-05-04] MEDS: Prenatal Vitamin 1 TAB PO SCH (20:03)
[2023-05-05 05:17] LABS: Hematocrit 26.8 % (36.0-47.0); Hemoglobin 8.5 g/dL (12.0-16.0)
[2023-05-05] MEDS: Acetaminophen 325 MG TAB PO PRN (08:10)
[2023-05-05] MEDS: Famotidine 20 MG TAB PO SCH ×2 (08:10→21:31)
[2023-05-05] MEDS: Ferrous Sulfate 325 MG TAB PO SCH (08:10)
[2023-05-05] MEDS ORDERED: GoLYTELY 4,000 ml Bottle PO SCH (13:30)
[2023-05-05] MEDS: Erythromycin Base 250 MG TAB PO SCH ×2 (15:01→21:35)
[2023-05-05] MEDS: Neomycin 500 mg Tablet PO SCH ×2 (15:01→21:31)
[2023-05-05] MEDS: Prenatal Vitamin 1 TAB PO SCH (21:32)
[2023-05-06] MEDS: Neomycin 500 mg Tablet PO SCH (07:45)
[2023-05-06] MEDS: Erythromycin Base 250 MG TAB PO SCH (07:45)
[2023-05-06] MEDS: Famotidine 20 MG TAB PO SCH ×2 (07:46→20:47)
[2023-05-06] MEDS: Ferrous Sulfate 325 MG TAB PO SCH (07:46)
[2023-05-06] MEDS ORDERED: fentaNYL 50 mcg/mL 1 mL Vial ONE ×3 (13:22→17:50)
[2023-05-06] MEDS ORDERED: Bupivacaine 0.25% HCL 30 ML VIAL ONE (13:23)
[2023-05-06] MEDS ORDERED: Midazolam HCl 2 mg/2 ml Vial ONE (13:23)
[2023-05-06] MEDS ORDERED: Lidocaine 1% PF 5 ML VIAL ONE ×2 (13:33→14:44)
[2023-05-06] MEDS ORDERED: Rocuronium Bromide 10 MG/ML (10ML VIAL) ONE ×2 (13:33→14:44)
[2023-05-06] MEDS ORDERED: PROPOFOL 20 ML ONE (13:33)
[2023-05-06] MEDS ORDERED: Ondansetron PF 4 MG/2 ML Vial ONE ×3 (13:38→15:11)
[2023-05-06] MEDS ORDERED: fentaNYL PF 100 MCG/2 ML SYRINGE ONE (14:12)
[2023-05-06] MEDS ORDERED: EPINEPHrine 1 MG/ML VIAL ONE (14:13)
[2023-05-06] MEDS ORDERED: Lidocaine 1% (PF) 30 ML VIAL ONE ×2 (14:14→14:46)
[2023-05-06] MEDS ORDERED: Dexamethasone 20 MG/5 ML VIAL ONE ×2 (14:44→15:11)
[2023-05-06] MEDS ORDERED: PROPOFOL 200 MG/20 ML VIAL ONE (14:44)
[2023-05-06] MEDS ORDERED: Glycopyrrolate 0.2 MG/ML 5 ML SYRINGE ONE ×2 (14:44→16:43)
[2023-05-06] MEDS ORDERED: PHENYLEPHRINE-NS 100 MCG/ML 10 ML SYRINGE ONE ×2 (14:44→15:11)
[2023-05-06] MEDS ORDERED: NEOSTIGMINE 3 MG/3 ML SYR 3 MG/3 ML SYRINGE ONE ×2 (14:44→16:43)
[2023-05-06] MEDS ORDERED: cefOXitin 2 GM VIAL ONE (14:45)
[2023-05-06] MEDS ORDERED: Sterile Water 20 ML ONE (15:03)
[2023-05-06] MEDS ORDERED: HYDROmorphone 2 MG/ML VIAL ONE (15:25)
[2023-05-06] MEDS ORDERED: SUGAMMADEX SODIUM 200 MG/2 ML VIAL ONE (16:54)
[2023-05-06] MEDS ORDERED: HYDROmorphone 2 MG/ML VIAL SLOW IVP PRN (17:07)
[2023-05-06] MEDS ORDERED: Promethazine HCl 25 MG/ML VIAL IM PRN ×2 (17:07→17:17)
[2023-05-06] MEDS ORDERED: Ondansetron HCl/PF 4 MG/2 ML Vial IVP PRN (17:07)
[2023-05-06] MEDS ORDERED: Ketorolac Tromethamine 30 MG/ML VIAL IVP PRN (17:07)
[2023-05-06] MEDS ORDERED: Morphine Sulfate 2 MG/ML SYRINGE SLOW IVP PRN (17:07)
[2023-05-06] MEDS ORDERED: Meperidine HCl/PF 25 MG/ML VIAL SLOW IVP PRN (17:07)
[2023-05-06] MEDS ORDERED: Ondansetron PF 4 MG/2 ML Vial IVP PRN (17:17)
[2023-05-06] MEDS ORDERED: Morphine 2 MG/ML VIAL SLOW IVP PRN (17:17)
[2023-05-06] MEDS ORDERED: Ipratropium/Albuterol 3 ML NEB NEB PRN (17:17)
[2023-05-06] MEDS ORDERED: hydrALAZINE 20 MG/ML VIAL SLOW IVP PRN (17:17)
[2023-05-06 19:22] LABS: #Monocytes 0.1 thou/uL (0.11-0.59); #Neutrophils 14.6 thou/uL (1.40-6.50); %Basophils 0.1 % (0.0-1.0); %Eosinophils 0.1 % (0.0-10.0); %Lymphocytes 3.8 % (21.0-51.0); %Monocytes 0.7 % (0.0-10.0); Hematocrit 28.3 % (36.0-47.0); Hemoglobin 8.7 g/dL (12.0-16.0); Mean Corpuscular HGB CONC 30.7 g/dL (32.0-36.0); Mean Corpuscular Hemoglobin 25.4 pg (27.0-31.0); Mean Corpuscular Volume 82.5 fl (78.0-98.0); Mean Platelet Volume 9.2 fL (7.4-10.4); Platelet Count 308 10x3/uL (130-400); RBC Distribution Width 15.9 % (11.5-14.5); Red Blood Cell (RBC) Count 3.43 mill/uL (4.20-5.40); White Blood Cell (WBC) Count 15.4 10x3/uL (4.8-10.8)
[2023-05-06] MEDS: Ketorolac Tromethamine 30 MG/ML VIAL IVP SCH ×2 (19:38→23:27)
[2023-05-06] MEDS: Famotidine/PF 20 mg/2ml Vial SLOW IVP SCH (20:47)
[2023-05-06] MEDS: D5 1/2 NS w/20 mEq KCL 1,000 ML IV SCH (20:47)
[2023-05-06] MEDS: Morphine 4 MG/ML VIAL SLOW IVP PRN (20:55)
[2023-05-07] MEDS: D5 1/2 NS w/20 mEq KCL 1,000 ML IV SCH ×4 (04:31→17:53)
[2023-05-07 05:25] LABS: #Monocytes 0.3 thou/uL (0.11-0.59); %Basophils 0.1 % (0.0-1.0); %Lymphocytes 6.2 % (21.0-51.0); %Monocytes 2.4 % (0.0-10.0); %Neutrophils 90.8 % (42.0-75.0); Hematocrit 26.6 % (36.0-47.0); Hemoglobin 8.2 g/dL (12.0-16.0); Mean Corpuscular HGB CONC 30.8 g/dL (32.0-36.0); Mean Corpuscular Hemoglobin 25.5 pg (27.0-31.0); Mean Corpuscular Volume 82.6 fl (78.0-98.0); Mean Platelet Volume 10.1 fL (7.4-10.4); Platelet Count 326 10x3/uL (130-400); RBC Distribution Width 15.8 % (11.5-14.5); Red Blood Cell (RBC) Count 3.22 mill/uL (4.20-5.40)
[2023-05-07] MEDS: Ketorolac Tromethamine 30 MG/ML VIAL IVP SCH ×4 (05:37→23:20)
[2023-05-07 05:56] LABS: Anion Gap 16 mmol/L (10-20); BUN (Urea Nitrogen) 6 mg/dL (7.0-18.7); Calc. Creatinine Clearance 185 mL/min (70-130); Calcium 8.3 mg/dL (7.8-10.44); Carbon Dioxide 19 mmol/L (22-29); Chloride 105 mmol/L (98-107); Estimated GFR 101; Glucose 203 mg/dL (70-105); Potassium 4.5 mmol/L (3.5-5.1); Sodium 135 mmol/L (136-145)
[2023-05-07] MEDS: Famotidine/PF 20 mg/2ml Vial SLOW IVP SCH ×2 (09:33→22:03)
[2023-05-07] MEDS: Famotidine 20 MG TAB PO SCH ×2 (09:33→22:03)
[2023-05-07] MEDS ORDERED: HYDROcodone/Acetaminophen 7.5/325 mg Tablet PO PRN ×2 (14:59)
[2023-05-07] MEDS: Morphine 4 MG/ML VIAL SLOW IVP PRN (22:03)
[2023-05-08 05:30] LABS: #Monocytes 0.5 thou/uL (0.11-0.59); #Neutrophils 6.4 thou/uL (1.40-6.50); %Basophils 0.3 % (0.0-1.0); %Eosinophils 0.4 % (0.0-10.0); %Lymphocytes 23.7 % (21.0-51.0); %Monocytes 5.9 % (0.0-10.0); %Neutrophils 69.5 % (42.0-75.0); Hematocrit 26.2 % (36.0-47.0); Hemoglobin 7.6 g/dL (12.0-16.0); Mean Corpuscular Hemoglobin 24.8 pg (27.0-31.0); Mean Platelet Volume 9.9 fL (7.4-10.4); Platelet Count 300 10x3/uL (130-400); RBC Distribution Width 16.2 % (11.5-14.5); Red Blood Cell (RBC) Count 3.07 mill/uL (4.20-5.40); White Blood Cell (WBC) Count 9.2 10x3/uL (4.8-10.8)
[2023-05-08 05:41] LABS: Mean Corpuscular Volume 85.3 fl (78.0-98.0)
[2023-05-08] MEDS: D5 1/2 NS w/20 mEq KCL 1,000 ML IV SCH (05:50)
[2023-05-08] MEDS: Ketorolac Tromethamine 30 MG/ML VIAL IVP SCH ×3 (05:50→18:08)
[2023-05-08 06:03] LABS: Anion Gap 15 mmol/L (10-20); BUN (Urea Nitrogen) 9 mg/dL (7.0-18.7); Calc. Creatinine Clearance 180 mL/min (70-130); Calcium 8.6 mg/dL (7.8-10.44); Carbon Dioxide 16 mmol/L (22-29); Chloride 108 mmol/L (98-107); Estimated GFR 98; Glucose 112 mg/dL (70-105); Potassium 3.9 mmol/L (3.5-5.1); Sodium 135 mmol/L (136-145)
[2023-05-08] MEDS ORDERED: D5 1/2 NS w/20 mEq KCL 1,000 ML IV SCH (09:05)
[2023-05-08] MEDS: Famotidine 20 MG TAB PO SCH (09:28)
[2023-05-08] MEDS: Famotidine/PF 20 mg/2ml Vial SLOW IVP SCH (10:07)
[2023-05-08] MEDS: Ferrous Sulfate 325 MG TAB PO SCH ×2 (12:39→16:50)
[2023-05-08 17:55] VITALS: BP 113/66; TEMP 97.7
== END 2023-05-08 18:45 | disposition home or self-care (01) | DRG 330 ==
LOC: ERS 12:31 → MSONC 14:36 → SURG A 05-06 18:08
PROVIDERS: ADMIT Internal Medicine; ATTEND Internal Medicine
PROC: 0DBK8ZX Excision of Ascending Colon, Via Natural or Artificial Opening Endoscopic, Diagnostic (ICD-10-PCS; principal; 2023-05-03)
PROC: 3E033XZ Introduction of Vasopressor into Peripheral Vein, Percutaneous Approach (ICD-10-PCS; 2023-05-06)
PROC: 0DTF4ZZ Resection of Right Large Intestine, Percutaneous Endoscopic Approach (ICD-10-PCS; 2023-05-06)
DX: C18.0 Malignant neoplasm of cecum (principal); K92.1 Melena; Z68.41 Body mass index [BMI] 40.0-44.9, adult; D50.0 Iron deficiency anemia secondary to blood loss (chronic); D12.2 Benign neoplasm of ascending colon; K63.89 Other specified diseases of intestine; R19.7 Diarrhea, unspecified; R10.31 Right lower quadrant pain; R19.00 Intra-abdominal and pelvic swelling, mass and lump, unspecified site; R63.4 Abnormal weight loss; E66.01 Morbid (severe) obesity due to excess calories; D72.829 Elevated white blood cell count, unspecified; R16.2 Hepatomegaly with splenomegaly, not elsewhere classified; K80.20 Calculus of gallbladder without cholecystitis without obstruction; N83.202 Unspecified ovarian cyst, left side; Z71.3 Dietary counseling and surveillance; Z79.899 Other long term (current) drug therapy; Z98.891 History of uterine scar from previous surgery
CPT/HCPCS: 36415; 36416; 71260; 74177; 80048; 80053; 82378; 84703; 85014; 85018; 85025; 86850; 86870; 86900; 86901; 86904; 86905; 86922; 88305; 88309; 99285; A4649; J0171; J0694; J1100; J1170; J1650; J1885; J2001; J2250; J2270; J2272; J2405; J2704; J3010; J3480; Q0162; S0020; S0028

== ENCOUNTER 2023-11-25 08:01 | Outpatient (CLI) | payer OTHER ==
[2023-11-25] MEDS ORDERED: Iopamidol 370 76% 100 ML VIAL ONE (11:30)
== END 2023-11-25 08:02 | disposition home or self-care (01) ==
LOC: BICCT 08:01
PROVIDERS: ATTEND Internal Medicine Hematology & Oncology
DX: C18.0 Malignant neoplasm of cecum (principal); R59.0 Localized enlarged lymph nodes; K76.0 Fatty (change of) liver, not elsewhere classified; K80.20 Calculus of gallbladder without cholecystitis without obstruction; R16.2 Hepatomegaly with splenomegaly, not elsewhere classified; Z90.49 Acquired absence of other specified parts of digestive tract
CPT/HCPCS: 71260; 74177; Q9967